=== PATIENT | female | born 1935 | race Caucasian/White ===

== ENCOUNTER → 2016-11-04 | Outpatient (CLI) | payer MEDICARE, BC ==
[2014-09-19 11:19] VITALS: BP 162/68
[~2016-11-04] MED LIST: ATIVAN 0.50.5 MG/TAB PO; CIPRO 250MG TA250 MG PO; LEXAPRO10 MG PO; LOPRESSOR50 MG PO; PLAVIX 75MG TAB75 MG PO; ZOFRAN 4MG4 MG/2 ML IV
== END ==
LOC: LAB 16:26
DX: D64.9 Anemia, unspecified (principal)

== ENCOUNTER → 2016-11-17 | Outpatient (CLI) | payer MEDICARE, BC ==
[2014-09-19 11:19] VITALS: BP 162/68
== END ==
LOC: LAB 16:03
DX: I10 Essential (primary) hypertension (principal)

== ENCOUNTER → 2017-02-06 | Outpatient (CLI) | payer MEDICARE, BC ==
[2014-09-19 11:19] VITALS: BP 162/68
[2017-02-06 17:30] LABS: ALBUMIN 4.4 g/dL (3.5-5.0); BUN/CREATININE RATIO 19.7 (6.0-26.0); CALCIUM 10.2 mg/dL (8.4-10.2); HEMATOCRIT 38.7 % (37.0-47.0); HEMOGLOBIN 12.5 g/dL (12.5-16.0); MEAN CELL VOLUME 95 fl (78-100); MEAN CORPUSCULAR HEMOGLOBIN 31 pg (27-31); MEAN CORPUSCULAR HGB CONC 32 g/dL (33-37); MEAN PLATELET VOLUME 9.9 fl (7.4-10.4); PLATELET COUNT 161 K/mm3 (130-400); POTASSIUM 4.5 mmol/L (3.6-5.0); RED BLOOD COUNT 4.06 M/mm3 (4.10-5.30); RED CELL DISTRIBUTION WIDTH 14.1 % (11.5-14.5); TOTAL BILIRUBIN 0.9 mg/dL (0.2-1.3); TOTAL PROTEIN 7.7 g/dL (6.3-8.2); WHITE BLOOD COUNT 7.8 K/mm3 (4.8-10.8)
[2017-02-06 18:39] LABS: LYMPHOCYTE 13 % (20-51); MONOCYTE 11 % (3-10); NEUTROPHILS 76 % (42-75)
== END ==
LOC: LAB 16:46
PROVIDERS: Internal Medicine
DX: I10 Essential (primary) hypertension (principal); K90.89 Other intestinal malabsorption; M81.0 Age-related osteoporosis without current pathological fracture; F32.1 Major depressive disorder, single episode, moderate

== ENCOUNTER → 2018-01-15 | Outpatient (CLI) | payer MEDICARE, BC ==
[2014-09-19 11:19] VITALS: BP 162/68
[2018-01-15 17:52] LABS: ALBUMIN 4.3 g/dL (3.5-5.0); CALCIUM 9.6 mg/dL (8.4-10.2); POTASSIUM 5.4 mmol/L (3.6-5.0); TOTAL BILIRUBIN 0.6 mg/dL (0.2-1.3); TOTAL PROTEIN 7.3 g/dL (6.3-8.2)
[2018-01-15 20:18] LABS: HEMATOCRIT 38.3 % (37.0-47.0); HEMOGLOBIN 12.2 g/dL (12.5-16.0); MEAN CELL VOLUME 97 fl (78-100); MEAN CORPUSCULAR HEMOGLOBIN 31 pg (27-31); MEAN CORPUSCULAR HGB CONC 32 g/dL (33-37); MEAN PLATELET VOLUME 10.9 fl (7.4-10.4); PLATELET COUNT 174 K/mm3 (130-400); RED BLOOD COUNT 3.94 M/mm3 (4.10-5.30); RED CELL DISTRIBUTION WIDTH 13.7 % (11.5-14.5)
[2018-01-15 22:42] LABS: LYMPHOCYTE 10 % (20-51); MONOCYTE 7 % (3-10); NEUTROPHILS 82 % (42-75)
== END ==
LOC: LAB 16:03
PROVIDERS: Internal Medicine
DX: I10 Essential (primary) hypertension (principal); M81.0 Age-related osteoporosis without current pathological fracture; F32.9 Major depressive disorder, single episode, unspecified; R20.2 Paresthesia of skin; K90.9 Intestinal malabsorption, unspecified

== ENCOUNTER → 2018-12-10 | Outpatient (CLI) | payer MEDICARE, BC ==
[2014-09-19 11:19] VITALS: BP 162/68
[2018-12-10 17:10] LABS: HEMATOCRIT 37.1 % (37.0-47.0); HEMOGLOBIN 11.7 g/dL (12.5-16.0); MEAN CELL VOLUME 96 fl (78-100); MEAN CORPUSCULAR HEMOGLOBIN 30 pg (27-31); MEAN CORPUSCULAR HGB CONC 32 g/dL (33-37); PLATELET COUNT 119 K/mm3 (130-400); RED BLOOD COUNT 3.86 M/mm3 (4.10-5.30); RED CELL DISTRIBUTION WIDTH 13.7 % (11.5-14.5); WHITE BLOOD COUNT 7.6 K/mm3 (4.8-10.8)
[2018-12-10 17:22] LABS: ALBUMIN 4.1 g/dL (3.4-4.8)
[2018-12-10 17:24] LABS: CALCIUM 9.4 mg/dL (8.3-10.5)
[2018-12-10 17:25] LABS: TOTAL PROTEIN 7.3 g/dL (6.2-8.1)
[2018-12-10 17:27] LABS: TOTAL BILIRUBIN 0.5 mg/dL (0.2-1.2)
[2018-12-11 01:12] LABS: LYMPHOCYTE 12 % (20-51); MONOCYTE 10 % (3-10); NEUTROPHILS 77 % (42-75)
== END ==
LOC: LAB 16:43
PROVIDERS: Internal Medicine
DX: I10 Essential (primary) hypertension (principal); M81.0 Age-related osteoporosis without current pathological fracture; F32.1 Major depressive disorder, single episode, moderate; K90.9 Intestinal malabsorption, unspecified; R20.2 Paresthesia of skin

== ENCOUNTER → 2020-07-12 | Outpatient (CLI) | payer MEDICARE, BC ==
[2014-09-19 11:19] VITALS: BP 162/68
[2020-07-12 17:45] LABS: BASO # 0.1 (0.02-0.10); EOS # 0.6 (0.04-0.40); EOS % 6.7 % (1.0-5.0); HEMATOCRIT 35.9 % (37.0-47.0); HEMOGLOBIN 11.1 g/dL (12.5-16.0); LYMPH# 1.4 (1.50-4.00); MEAN CELL VOLUME 93 fl (78-100); MEAN CORPUSCULAR HEMOGLOBIN 29 pg (27-31); MEAN CORPUSCULAR HGB CONC 31 g/dL (33-37); MEAN PLATELET VOLUME 9.8 fl (7.4-10.4); MONO # 0.8 (0.20-0.80); NEU # 5.5 (1.40-6.50); PLATELET COUNT 154 K/mm3 (130-400); RED BLOOD COUNT 3.85 M/mm3 (4.10-5.30); RED CELL DISTRIBUTION WIDTH 14.7 % (11.5-14.5); WHITE BLOOD COUNT 8.3 K/mm3 (4.8-10.8)
[2020-07-12 18:19] LABS: ALBUMIN 4.1 g/dL (3.4-4.8); POTASSIUM 4.6 mmol/L (3.5-5.1)
[2020-07-12 18:21] LABS: CALCIUM 9.7 mg/dL (8.3-10.5)
[2020-07-12 18:22] LABS: TOTAL PROTEIN 7.3 g/dL (6.2-8.1)
[2020-07-12 18:24] LABS: TOTAL BILIRUBIN 0.3 mg/dL (0.2-1.2)
[2020-07-12 18:28] LABS: MAGNESIUM 2.08 mg/dL (1.60-2.60)
== END ==
LOC: LAB 16:53
PROVIDERS: Internal Medicine
DX: M81.0 Age-related osteoporosis without current pathological fracture (principal); I10 Essential (primary) hypertension

== ENCOUNTER → 2020-11-10 | Outpatient (CLI) | payer MEDICARE, BC ==
[2020-11-10 15:56] LABS: BASO # 0.05 (0.02-0.10); EOS # 0.39 (0.04-0.40); HEMATOCRIT 29.6 % (37.0-47.0); HEMOGLOBIN 9.3 g/dL (12.5-16.0); LYMPH# 0.97 (1.50-4.00); MEAN CELL VOLUME 97 fl (78-100); MEAN CORPUSCULAR HEMOGLOBIN 31 pg (27-31); MEAN CORPUSCULAR HGB CONC 31 g/dL (33-37); MEAN PLATELET VOLUME 10.4 fl (7.4-10.4); MONO # 0.66 (0.20-0.80); NEU # 4.46 (1.40-6.50); PLATELET COUNT 134 K/mm3 (130-400); RED BLOOD COUNT 3.05 M/mm3 (4.10-5.30); RED CELL DISTRIBUTION WIDTH 15.6 % (11.5-14.5); WHITE BLOOD COUNT 6.6 K/mm3 (4.8-10.8)
[2020-11-10 16:03] LABS: ALBUMIN 3.5 g/dL (3.4-4.8)
[2020-11-10 16:04] LABS: POTASSIUM 4.5 mmol/L (3.5-5.1)
[2020-11-10 16:05] LABS: CALCIUM 9.8 mg/dL (8.3-10.5)
[2020-11-10 16:06] LABS: TOTAL PROTEIN 6.1 g/dL (6.2-8.1)
[2020-11-10 16:12] LABS: MAGNESIUM 2.07 mg/dL (1.60-2.60)
[2020-11-10 17:08] LABS: TOTAL BILIRUBIN 0.6 mg/dL (0.2-1.2)
== END ==
LOC: LAB 15:14
PROVIDERS: Internal Medicine
DX: I10 Essential (primary) hypertension (principal)

== ENCOUNTER → 2020-11-16 | Outpatient (CLI) | payer MEDICARE, BC ==
[2020-11-16 15:13] LABS: BASO # 0.06 (0.02-0.10); EOS # 0.21 (0.04-0.40); EOS % 3.3 % (1.0-5.0); HEMATOCRIT 28.8 % (37.0-47.0); HEMOGLOBIN 8.8 g/dL (12.5-16.0); LYMPH# 0.97 (1.50-4.00); MEAN CELL VOLUME 99 fl (78-100); MEAN CORPUSCULAR HEMOGLOBIN 30 pg (27-31); MEAN CORPUSCULAR HGB CONC 31 g/dL (33-37); MEAN PLATELET VOLUME 9.6 fl (7.4-10.4); MONO # 0.61 (0.20-0.80); NEU # 4.42 (1.40-6.50); PLATELET COUNT 164 K/mm3 (130-400); RED BLOOD COUNT 2.92 M/mm3 (4.10-5.30); RED CELL DISTRIBUTION WIDTH 16.1 % (11.5-14.5); WHITE BLOOD COUNT 6.3 K/mm3 (4.8-10.8)
[2020-11-16 15:23] LABS: ALBUMIN 3.4 g/dL (3.4-4.8)
[2020-11-16 15:24] LABS: POTASSIUM 4.5 mmol/L (3.5-5.1); SODIUM 140 mmol/L (136-145)
[2020-11-16 15:25] LABS: CALCIUM 9.4 mg/dL (8.3-10.5)
[2020-11-16 15:26] LABS: GLUCOSE 81 mg/dL (65-105); TOTAL PROTEIN 6.3 g/dL (6.2-8.1)
[2020-11-16 15:27] LABS: CARBON DIOXIDE 22 mmol/L (23-31)
[2020-11-16 15:28] LABS: TOTAL BILIRUBIN 0.4 mg/dL (0.2-1.2)
[2020-11-16 15:31] LABS: AST-SGOT 18 U/L (5-34)
[2020-11-16 15:43] LABS: ALT/SGPT < 6 U/L (0-55)
== END ==
LOC: LAB 14:54
PROVIDERS: Internal Medicine
DX: I10 Essential (primary) hypertension (principal); K25.4 Chronic or unspecified gastric ulcer with hemorrhage; Z20.822 Contact with and (suspected) exposure to COVID-19

== ENCOUNTER → 2020-11-23 | Outpatient (CLI) | payer MEDICARE, BC ==
[2020-11-23 14:46] LABS: BASO # 0.06 (0.02-0.10); EOS # 0.24 (0.04-0.40); EOS % 4.5 % (1.0-5.0); HEMATOCRIT 29.5 % (37.0-47.0); LYMPH# 0.84 (1.50-4.00); MEAN CELL VOLUME 99 fl (78-100); MEAN CORPUSCULAR HEMOGLOBIN 30 pg (27-31); MEAN CORPUSCULAR HGB CONC 31 g/dL (33-37); MEAN PLATELET VOLUME 10.3 fl (7.4-10.4); MONO # 0.54 (0.20-0.80); NEU # 3.71 (1.40-6.50); PLATELET COUNT 157 K/mm3 (130-400); RED BLOOD COUNT 2.98 M/mm3 (4.10-5.30); RED CELL DISTRIBUTION WIDTH 16.5 % (11.5-14.5); WHITE BLOOD COUNT 5.4 K/mm3 (4.8-10.8)
[2020-11-23 15:07] LABS: CALCIUM 9.9 mg/dL (8.3-10.5)
== END ==
LOC: LAB 14:16
PROVIDERS: Internal Medicine
DX: K25.4 Chronic or unspecified gastric ulcer with hemorrhage (principal)

== ENCOUNTER → 2020-12-16 | Outpatient (CLI) | payer MEDICARE, BC ==
[2020-12-16 15:41] LABS: BASO # 0.07 (0.02-0.10); EOS # 0.28 (0.04-0.40); EOS % 3.8 % (1.0-5.0); HEMATOCRIT 33.7 % (37.0-47.0); HEMOGLOBIN 10.5 g/dL (12.5-16.0); LYMPH# 1.35 (1.50-4.00); MEAN CELL VOLUME 97 fl (78-100); MEAN CORPUSCULAR HEMOGLOBIN 30 pg (27-31); MEAN CORPUSCULAR HGB CONC 31 g/dL (33-37); MEAN PLATELET VOLUME 9.7 fl (7.4-10.4); MONO # 0.68 (0.20-0.80); NEU # 4.96 (1.40-6.50); PLATELET COUNT 145 K/mm3 (130-400); RED BLOOD COUNT 3.48 M/mm3 (4.10-5.30); RED CELL DISTRIBUTION WIDTH 14.2 % (11.5-14.5); WHITE BLOOD COUNT 7.4 K/mm3 (4.8-10.8)
[2020-12-16 15:57] LABS: ALBUMIN 3.8 g/dL (3.4-4.8)
[2020-12-16 15:58] LABS: POTASSIUM 4.7 mmol/L (3.5-5.1); SODIUM 139 mmol/L (136-145)
[2020-12-16 15:59] LABS: CALCIUM 10.5 mg/dL (8.3-10.5)
[2020-12-16 16:01] LABS: TOTAL PROTEIN 6.9 g/dL (6.2-8.1)
[2020-12-16 16:02] LABS: CARBON DIOXIDE 23 mmol/L (23-31); GLUCOSE 108 mg/dL (65-105)
[2020-12-16 16:03] LABS: TOTAL BILIRUBIN 0.3 mg/dL (0.2-1.2)
[2020-12-16 16:06] LABS: AST-SGOT 18 U/L (5-34)
[2020-12-16 16:22] LABS: ALT/SGPT < 6 U/L (0-55)
== END ==
LOC: LAB 15:17
PROVIDERS: Internal Medicine
DX: I10 Essential (primary) hypertension (principal)